=== PATIENT | male | born 1975 | race Caucasian/White ===

== ENCOUNTER → 2021-01-17 08:49 | Outpatient (CLI) | payer OTHER, SELFPAY ==
--- NOTE | 2021-01-17 | DI.ECHO.S_ITS ---
[facility]---------[facility] +---------+ : : [address] : [address] : : [place] : : : : [id number] : : : : Phone: [phone]---------+ Echocardiogram Report + + :Name: VIOLETTE BRADLEY Study Date: 01/17/2021 Height: 74 in : :[facility] ReadingLocation: Weight: 215 lb : : Gender: Male BSA: 2.2 m2 : :: 1975 Age: 45 yrs BP: 144/78 mmHg: :Reason For Study: ENCOUNTER FOR GENERAL ADULT MEDICAL : :EXAMINATION : :Ordering Physician: CHRIS, : :SAUNDRA Performed By: Aneta Morataya : :Referring: SAUNDRA PEREZ : + + Interpretation Summary The patient was in atrial fibrillation with heart rates between 95-120 bpm during the exam. The left ventricle is normal in size and wall thickness. The ejection fraction is estimated to be 50-55%. There is a mild dyssynchronous contraction pattern, consistent with a conduction abnormality. The right ventricle is grossly normal size. Right ventricular systolic function is mildly reduced. No significant valvular pathology seen. The IVC is of normal diameter and collapses greater than 50% with a sniff. This suggests a low right atrial pressure of 3 mm Hg. Procedure: A two-dimensional transthoracic echocardiogram with color flow and Doppler was performed. The study quality was technically adequate. There is no prior echocardiogram noted for this patient. The patient was in atrial fibrillation with heart rates between 95-120 bpm during the exam. Left Ventricle: The left ventricle is normal in size and wall thickness. There is no thrombus. The ejection fraction is estimated to be 50-55%. There is a mild dyssynchronous contraction pattern, consistent with a conduction abnormality. Diastolic function could not be accurately assessed due to atrial fibrillation. Right Ventricle: The right ventricle is grossly normal size. Right ventricular systolic function is mildly reduced. Atria: The left atrium grossly appears normal in size. Right atrial size is normal. A prominent eustachian valve is noted. There is no Doppler evidence for an interatrial shunt. Mitral Valve: The mitral valve is normal in structure and function. There is trace mitral regurgitation. Aortic Valve: The aortic valve is trileaflet. The aortic valve opens well. There is no aortic valve stenosis. No aortic regurgitation is present. Tricuspid Valve: The tricuspid valve is normal in structure and function. Pulmonary artery pressures cannot be estimated because of the lack of a measurable TR jet velocity but the IVC suggests a CVP of around 3 mmHg. There is trace tricuspid regurgitation. Pulmonic Valve: The pulmonic valve leaflets are thin and pliable; valve motion is normal. There is mild pulmonic regurgitation. Great Vessels: The aortic root is mildly dilated. The ascending aorta is at the upper limits of normal in size. The IVC is of normal diameter and collapses greater than 50% with a sniff. This suggests a low right atrial pressure of 3 mm Hg. Pericardium/ Pleura There is no pericardial effusion. There is no pleural effusion. MMode/2D Measurements & Calculations LVIDd: 4.6 cm LVOT diam: 2.2 cm LVIDs: 3.0 cm Ao root diam: 4.1 cm FS: 35.2 % asc Aorta Diam: 3.6 cm IVSd: 1.1 cm LVPWd: 1.0 cm LV vila. diameter/BSA (cm/m^2): 2.1 LV sys. diameter/BSA (cm/m^2): 1.3 LA A2 area: 19.6 cm2 RA long axis: 5.2 cm LA A4 area: 19.9 cm2 RA area: 17.0 cm2 LA length (vol): 5.6 cm RA vol: 47.4 ml LA vol: 59.0 ml RA : 21.1 ml/m2 LA vol index: 26.3 ml/m2 IVC diam: 0.88 cm RVD1 (basal): 3.7 cm TAPSE: 1.7 cm Doppler Measurements & Calculations Ao V2 max: 107.6 cm/sec LVOT Max Yonis: 97.6 cm/sec Ao V2 mean: 74.6 cm/sec LV V1 max P.8 mmHg Ao max P.6 mmHg LV V1 VTI: 17.4 cm Ao mean P.6 mmHg SOFIA(I,D): 3.6 cm2 Ao V2 VTI: 19.0 cm SOFIA(V,D): 3.5 cm2 sev ratio: 0.92 SOFIA indexed to BSA (cm^2/m^2): 1.6 MV E max yonis: 62.6 cm/sec PA pr(Accel): 24.2 mmHg MV A max yonis: 1.6 cm/sec MV E/A: 38.7 Med Peak E' Yonis: 12.2 cm/sec E/E' med: 5.1 Lat Peak E' Yonis: 17.9 cm/sec E/E' lat: 3.5 E/e' average: 4.3 MV dec time: 0.12 sec SV(LVOT): 67.6 ml Reading Physician:05:39 PM
== END ==
PROVIDERS: Referring Provider Physician Assistant; Visit Provider Physician Assistant
DX: I37.1 Nonrheumatic pulmonary valve insufficiency (principal); I77.810 Thoracic aortic ectasia
CPT/HCPCS: 93306